=== PATIENT | female | born 1980 | race African-American/Black ===

== ENCOUNTER 2017-03-18 05:54 | Emergency (ER) | payer BC ==
[2017-03-18 06:06] VITALS: BP 138/80; PULSE 116; TEMP 97.5; BMI 31.2
[2017-03-18] MEDS ORDERED: SODIUM CHLORIDE 1,000 ML IV STA (07:47)
[2017-03-18] MEDS ORDERED: FAMOTIDINE 20 MG/50 ML IVPB 20 MG/50 ML MG IVPB ONE (07:47)
--- NOTE | 2017-03-18 07:49 | PDOC ---
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 Today to approximate 4 AM she woke up vomiting complaining of generalized abdominal discomfort. 2 episodes of diarrhea , multiple episodes of vomiting, bilious. Denies any fever. No hematemesis. Denies any back pain, chest pain or shortness of breath. Denies any urinary symptoms.] Allergies: No known allergies Medications: [None] Family History: Non-contributory Social History: Denies smoking, alcohol use, or IVDU Vital signs on arrival are [notable for pulse of 116.] Review of Systems GENERAL/CONSTITUTIONAL: [No fever or chills. No weakness. No weight change.] HEAD, EYES, EARS, NOSE AND THROAT: [No change in vision. No ear pain or discharge. No sore throat. ] CARDIOVASCULAR: [No chest pain or shortness of breath.] RESPIRATORY: [No cough, wheezing, or hemoptysis.] GASTROINTESTINAL: [Vomiting and diarrhea, no constipation, no rectal bleeding. Generalized abdominal discomfort with no defined tenderness] GENITOURINARY: [No dysuria, frequency, or change in urination.] MUSCULOSKELETAL: [No joint or muscle swelling or pain. No neck or back pain.] SKIN: [No rash or easy bruising.] NEUROLOGIC: [No headache, vertigo, loss of consciousness, or loss of sensation.] PSYCHIATRIC: [Anxious, no depression.] ENDOCRINE: [No increased thirst. No abnormal weight change.] HEMATOLOGIC/LYMPHATIC: [No anemia, easy bleeding, or history of blood clots.] ALLERGIC/IMMUNOLOGIC: [No hives or skin allergy. No latex allergy.] Physical Exam: GENERAL: [The patient is awake, alert, and fully oriented, in no acute distress. ] EYES: [Pupils equal, round and reactive to light, extraocular movements intact, sclera anicteric, conjunctiva clear.] ENT: [Ears normal, nares patent, oropharynx clear without exudates. Moist mucous membranes. No uvula deviation] NECK: [Normal range of motion, supple without lymphadenopathy, JVD, or masses.] LUNGS: [Breath sounds equal, clear to auscultation bilaterally. No wheezes, and no crackles.] HEART: [Regular rate and rhythm, normal S1 and S2 without murmur, rub or gallop. ] ABDOMEN: [Soft, nontender, normoactive bowel sounds. No guarding, no rebound. No masses. No bruising or abrasions] RECTAL : [Guaiac negative, normal rectal tone.] MUSCULOSKELETAL: [Normal range of motion, no edema. No clubbing or cyanosis. No cords, erythema, or tenderness. No CVA Tenderness with fist palpation.] NEUROLOGICAL: [Cranial nerves II through XII grossly intact. Normal speech, normal gait.] SKIN: [Warm, Dry, normal turgor, no rashes or lesions noted.] Past History - Past Medical History Allergies/Adverse Reactions: Allergies Allergy/AdvReac Type Severity Reaction Status Date / Time No Known Allergies Allergy Verified 03/18/17 06:04 Home Medications: Ambulatory Orders Omeprazole [Prilosec] 20 mg PO DAILY 11/28/13 Famotidine [Pepcid -] 20 mg PO BID #14 tablet 03/18/17 Ondansetron HCl [Zofran] 4 mg PO TID #20 tablet 03/18/17 Anemia: No Asthma: No Cancer: No Cardiac Disorders: No CVA: No COPD: No Dementia: No Diabetes: No Dialysis: No GI Disorders: Yes (gerd) Disorders: No HTN: No Hypercholesterolemia: No Kidney Stones: No Liver Disease: No Seizures: No Thyroid Disease: No - Surgical History Abdominal Surgery: No Appendectomy: No Cardiac Surgery: No Cholecystectomy: No Lung Surgery: No Neurologic Surgery: No - Immunization History Td Vaccination: Yes TDAP Vaccination: No Immunization Up to Date: Yes - Suicide/Smoking/Psychosocial Hx Smoking Status: No Smoking History: Never smoked Have you smoked in the past 12 months: No Number of Cigarettes Smoked Daily: 1 Information on smoking cessation initiated: No Hx Alcohol Use: No Drug/Substance Use Hx: No Substance Use Type: Alcohol *Physical Exam - Vital Signs Last Vital Signs Temp Pulse Resp BP Pulse Ox 97.5 F L 116 H 14 138/80 100 03/18/17 06:04 03/18/17 06:04 03/18/17 06:04 03/18/17 06:04 03/18/17 06:04 ED Treatment Course - LABORATORY CBC & Chemistry Diagram: 03/18/17 08:10 03/18/17 08:10 Medical Decision Making - Medical Decision Making 03/18/17 08:13 A/P: Patient here for evaluation of generalized abdominal pain has been having flulike symptoms for 5 days today woke up with vomiting was exposed to stomach virus in 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 She reports multiple children at her facility for vomiting with diarrhea. Patient denies any urinary symptoms, no fever, 2 episodes of vomiting none upon arrival, 2 episodes of diarrhea. Plan: CBC, CMP, urinalysis, urine culture and urine , Pepcid and Zofran 03/18/17 08:14 03/18/17 10:38 Laboratory Results - last 24 hr 03/18/17 03/18/17 03/18/17 08:10 08:10 08:10 WBC 8.5 RBC 4.86 D Hgb 11.9 Hct 39.2 MCV 80.6 MCH 24.6 L MCHC 30.5 L RDW 20.0 H D Plt Count 383 MPV 8.4 D Neutrophils % 66.2 Lymphocytes % 25.3 D Monocytes % 6.1 Eosinophils % 1.9 Basophils % 0.5 Sodium 139 Potassium 3.9 Chloride 103 Carbon Dioxide 19 L D Anion Gap 17 H BUN 10 D Creatinine 0.9 D Creat Clearance w eGFR > 60 Random Glucose 107 H Calcium 9.3 Total Bilirubin 0.3 D AST 20 D ALT 24 D Alkaline Phosphatase 87 Total Protein 8.6 H Albumin 4.3 Lipase 190 Urine Color Bridgette Urine Appearance Cloudy Urine pH 5.0 D Ur Specific [place] 1.025 Urine Protein 1+ H Urine Glucose (UA) Negative Urine Ketones Trace H Urine Blood 1+ H Urine Nitrite Negative Urine Bilirubin Negative Urine Urobilinogen Negative Ur Leukocyte Esterase Trace Urine WBC (Auto) 1 Urine RBC (Auto) 3 Ur Epithelial Cells Many Urine Mucus Rare Urine HCG, Qual 03/18/17 08:10 WBC RBC Hgb Hct MCV MCH MCHC RDW Plt Count MPV Neutrophils % Lymphocytes % Monocytes % Eosinophils % Basophils % Sodium Potassium Chloride Carbon Dioxide Anion Gap BUN Creatinine Creat Clearance w eGFR Random Glucose Calcium Total Bilirubin AST ALT Alkaline Phosphatase Total Protein Albumin Lipase Urine Color Urine Appearance Urine pH Ur Specific [place] Urine Protein Urine Glucose (UA) Urine Ketones Urine Blood Urine Nitrite Urine Bilirubin Urine Urobilinogen Ur Leukocyte Esterase Urine WBC (Auto) Urine RBC (Auto) Ur Epithelial Cells Urine Mucus Urine HCG, Qual Negative CBC reveals no anemia, leukocytosis, bandemia, lymphocytosis, or neutrophilia. Platelets are within normal values at this time. CMP reveals no electrolyte imbalance, there is no transaminitis, renal function is normal, there is no hyperbilirubinemia. Urinalysis reveals no urinary tract infection. There is +1 blood with 3 RBCs, inconsistent with kidney stone. Abdomen reassessed, no tenderness noted, good bowel sounds mildly hyperactive. Patient did tolerate fluids well. Reports no pain, no back pain, no CVA tenderness. Patient clinical signs of viral gastroenteritis. Will discharge patient home on Zofran, follow-up with PMD. Increase fluid intake. Angela diet. I discussed the physical exam findings, ancillary test results and final diagnoses with the patient. I answered all of the patient's questions. The patient was satisfied with the care received and felt comfortable with the discharge plan and treatment plan. The patient will call to arrange follow-up and will return to the Emergency Department with any new, persistent or worsening symptoms. *DC/Admit/Observation/Transfer Diagnosis at time of Disposition: Viral gastroenteritis - Discharge Dispostion Disposition: HOME Condition at time of disposition: Stable Admit: No - Prescriptions Prescriptions: Famotidine [Pepcid -] 20 mg PO BID #14 tablet Ondansetron HCl [Zofran] 4 mg PO TID #20 tablet - Referrals Referrals: Rosa Rojas MD [Primary Care Provider] - - Patient Instructions Printed Discharge Instructions: DI for Viral Gastroenteritis -- Adult Additional Instructions: Increase fluids to prevent dehydration Zofran as needed every 8 hours for nausea, Pepcid twice a day for the next 7 days Please followup with primary care in 3 days if symptoms persist Return to emergency department any increased cough, fever, inability to drink or other concerns - Post Discharge Activity Forms/Work/School Notes: Back to Work
[2017-03-18] MEDS ORDERED: ONDANSETRON 4 MG/2 ML VIAL IVPUSH ONE (07:50)
[2017-03-18 08:47] LABS: URINE APPEARANCE CLOUDY; URINE BILIRUBIN NEGATIVE (NEGATIVE); URINE BLOOD 1+ (NEGATIVE); URINE COLOR AMBER; URINE GLUCOSE (UA) NEGATIVE (NEGATIVE); URINE KETONE TRACE (NEGATIVE); URINE LEUK ESTERASE TRACE (NEGATIVE); URINE NITRITE NEGATIVE (NEGATIVE); URINE UROBILINOGEN NEGATIVE mg/dL (0.2-1.0)
[2017-03-18 08:59] LABS: BASO % 0.5 % (0-2.0); EOS % 1.9 % (0-4.5); HEMATOCRIT 39.2 % (32.4-45.2); HEMOGLOBIN 11.9 GM/dL (10.7-15.3); LYMPH % 25.3 % (8-40); MCH 24.6 pg (25.7-33.7); MCHC 30.5 g/dl (32.0-36.0); MEAN CELL VOLUME 80.6 fl (80-96); MEAN PLT VOLUME 8.4 fl (7.5-11.1); MONO % 6.1 % (3.8-10.2); NEUT % 66.2 % (42.8-82.8); PLATELET COUNT 383 K/MM3 (134-434); RBC 4.86 M/mm3 (3.60-5.2); WHITE BLOOD COUNT 8.5 K/mm3 (4.0-10.0)
[2017-03-18] MEDS ORDERED: ONDANSETRON 4 MG/2 ML VIAL ONE (09:03)
[2017-03-18 09:19] LABS: ALBUMIN 4.3 g/dl (3.4-5.0); ALK PHOS 87 U/L (45-117); ANION GAP 17 (8-16); BILIRUBIN,TOTAL 0.3 mg/dL (0.2-1.0); BLOOD UREA NITROGEN 10 mg/dL (7-18); CALCIUM 9.3 mg/dL (8.5-10.1); CHLORIDE 103 mmol/L (98-107); CO2 19 mmol/L (21-32); CREATININE 0.9 mg/dL (0.55-1.02); GLUCOSE,RANDOM 107 mg/dL (74-106); LIPASE 190 U/L (73-393); POTASSIUM 3.9 mmol/L (3.5-5.1); SGOT/AST 20 U/L (15-37); SGPT/ALT 24 U/L (12-78); SODIUM 139 mmol/L (136-145); TOT PROT 8.6 g/dl (6.4-8.2)
[2017-03-18 09:28] LABS: URINE PROTEIN 1+ (NEGATIVE)
--- NOTE | 2017-03-18 09:30 | PDOC ---
*Physical Exam - Vital Signs Last Vital Signs Temp Pulse Resp BP Pulse Ox 97.5 F L 116 H 14 138/80 100 03/18/17 06:04 03/18/17 06:04 03/18/17 06:04 03/18/17 06:04 03/18/17 06:04 - Physical Exam Comments: 03/18/17 09:30 The patient was examined by [SUBSTANCE ABUSE PREVENTION COORDINATOR Andolino] under my direct supervision. I personally evaluated the patient. I concur with the above findings and the plan of care. ED Treatment Course - LABORATORY CBC & Chemistry Diagram: 03/18/17 08:10 03/18/17 08:10 - ADDITIONAL ORDERS Additional order review: Laboratory Results 03/18/17 03/18/17 08:10 08:10 Sodium 139 Potassium 3.9 Chloride 103 Carbon Dioxide 19 L D Anion Gap 17 H BUN 10 D Creatinine 0.9 D Creat Clearance w eGFR > 60 Random Glucose 107 H Calcium 9.3 Total Bilirubin 0.3 D AST 20 D ALT 24 D Alkaline Phosphatase 87 Total Protein 8.6 H Albumin 4.3 Lipase 190 Urine Color Bridgette Urine Appearance Cloudy Urine pH 5.0 D Ur Specific [place] 1.025 Urine Protein 1+ H Urine Glucose (UA) Negative Urine Ketones Trace H Urine Blood 1+ H Urine Nitrite Negative Urine Bilirubin Negative Urine Urobilinogen Negative Ur Leukocyte Esterase Trace 03/18/17 08:10 RBC 4.86 D MCV 80.6 MCHC 30.5 L RDW 20.0 H D MPV 8.4 D Neutrophils % 66.2 Lymphocytes % 25.3 D Monocytes % 6.1 Eosinophils % 1.9 Basophils % 0.5 - Medications Given in the ED: ED Medications Discontinued Medications Generic Name Dose Route Start Last Admin Trade Name Freq PRN Reason Stop Dose Admin Sodium Chloride 1,000 mls @ 1,000 mls/hr 03/18/17 07:47 03/18/17 09:17 Normal Saline - IV 03/18/17 08:46 1,000 mls/hr ASDIR STA Administration Ondansetron HCl 4 mg 03/18/17 07:50 03/18/17 09:17 Zofran Injection IVPUSH 03/18/17 07:51 4 mg ONCE ONE Administration *DC/Admit/Observation/Transfer Diagnosis at time of Disposition: Viral gastroenteritis - Discharge Dispostion Disposition: HOME Condition at time of disposition: Stable - Prescriptions Prescriptions: Famotidine [Pepcid -] 20 mg PO BID #14 tablet Ondansetron HCl [Zofran] 4 mg PO TID #20 tablet - Referrals Referrals: Rosa Rojas MD [Primary Care Provider] - - Patient Instructions Printed Discharge Instructions: DI for Viral Gastroenteritis -- Adult Additional Instructions: Increase fluids to prevent dehydration Zofran as needed every 8 hours for nausea, Pepcid twice a day for the next 7 days Please followup with primary care in 3 days if symptoms persist Return to emergency department any increased cough, fever, inability to drink or other concerns - Post Discharge Activity Forms/Work/School Notes: Back to Work
[2017-03-18 09:50] LABS: EPI CELLS MANY /HPF (FEW); URINE MUCUS RARE
== END 2017-03-18 11:12 | disposition home or self-care (01) ==
LOC: JER 05:54
PROC: 3E033GC Introduction of Other Therapeutic Substance into Peripheral Vein, Percutaneous Approach (ICD-10-PCS; principal; 2017-03-18)
PROC: 3E0337Z Introduction of Electrolytic and Water Balance Substance into Peripheral Vein, Percutaneous Approach (ICD-10-PCS; 2017-03-18)
DX: A08.4 Viral intestinal infection, unspecified (principal)
CPT/HCPCS: 36415; 80053; 81003; 81015; 83690; 84703; 85025; 99281-25

== ENCOUNTER 2019-03-04 11:14 | Emergency (ER) | payer BC ==
[2019-03-04 11:21] VITALS: BMI 29.2
--- NOTE | 2019-03-04 11:47 | PDOC ---
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 Patient continues to vomit. Last night before she came in here. Patient does not have diarrhea but feels like that is "coming next". Patient tried to take DayQuil this morning and threw up. GENERAL/CONSTITUTIONAL: +fever, weakness. No: Dizziness HEAD, EYES, EARS, NOSE AND THROAT: No change in vision. No ear pain or discharge. No sore throat. CARDIOVASCULAR: No chest pain RESPIRATORY: No shortness of breath or cough GASTROINTESTINAL: No pain, nausea, +vomiting, no: Diarrhea or constipation GENITOURINARY: No dysuria MUSCULOSKELETAL: No neck or back pain SKIN: No rash NEUROLOGIC: No headache, vertigo, loss of consciousness, or loss of sensation. GENERAL: The patient is awake, alert, and fully oriented, in no acute distress. HEAD: Normal with no signs of trauma. EYES: Pupils equal, round and reactive to light, sclera anicteric, conjunctiva clear. ENT: pharynx: no erythema, no exudate, uvula midline NECK: supple CHEST: clear, nontender, rr ABD: soft, nontender BACK: no tenderness or signs of injury EXTREMITIES: Normal range of motion, no edema. NEUROLOGICAL: Normal speech, normal gait. SKIN: Warm, Dry Past History - Past Medical History Allergies/Adverse Reactions: Allergies Allergy/AdvReac Type Severity Reaction Status Date / Time No Known Allergies Allergy Verified 03/04/19 11:17 Home Medications: Ambulatory Orders Omeprazole [Prilosec] 20 mg PO DAILY 11/28/13 Anemia: No Asthma: No Cancer: No Cardiac Disorders: No CVA: No COPD: No Dementia: No Diabetes: No Dialysis: No GI Disorders: Yes (gerd) Disorders: No HTN: No Hypercholesterolemia: No Kidney Stones: No Liver Disease: No Seizures: No Thyroid Disease: No - Surgical History Abdominal Surgery: No Appendectomy: No Cardiac Surgery: No Cholecystectomy: No Lung Surgery: No Neurologic Surgery: No - Immunization History Td Vaccination: Yes TDAP Vaccination: No Immunization Up to Date: Yes - Psycho Social/Smoking Cessation Hx Smoking Status: No Smoking History: Never smoked Have you smoked in the past 12 months: No Number of Cigarettes Smoked Daily: 1 Hx Alcohol Use: No Drug/Substance Use Hx: No Substance Use Type: Alcohol *Physical Exam - Vital Signs Last Vital Signs Temp Pulse Resp BP Pulse Ox 100.3 F H 100 H 26 H 145/73 100 03/04/19 11:18 03/04/19 11:18 03/04/19 11:18 03/04/19 11:18 03/04/19 11:18 Heart Score/ECG Review - ECG Intrepretation Rhythm: Regular Rhythm (1426 normal sinus rhythm at 96, QTc 449, no ST or T wave changes) ED Treatment Course - LABORATORY CBC & Chemistry Diagram: 03/04/19 13:46 03/04/19 13:46 Medical Decision Making - Medical Decision Making 03/04/19 12:00 Healthy 38-year-old female with GI, flu symptoms since yesterday afternoon. Works in a custodial. Patient is not dehydrated, will give Zofran, flu swab, abdominal exam is benign. Will reassess. Patient will get Tylenol and about 20 -30 minutes after getting Zofran as she is running a fever. 1400 patient is flu negative. Patient continues to complain of various complaints including chest pain and throat pain. Patient will get some basic labs, hydration, Motrin, strep, EKG and full assessment. 03/04/19 15:29 Patient feels much better, patient is hungry, lab work, EKG, chest x-ray, flu, strep, cardiac enzyme is negative. Symptoms are consistent with viral illness but because patient felt so sick and has so many complaints work-up was done. Patient feels comfortable and feels better and she is stable for discharge home. This was all explained to patient. Discussed issues, findings, results, applicable medications and treatments and follow-up. All these were understood and all questions were answered Discharge - Discharge Information Problems reviewed: Yes Clinical Impression/Diagnosis: Viral illness Fever Qualifiers: Fever type: unspecified Qualified Code(s): R50.9 - Fever, unspecified Condition: Stable Disposition: HOME - Admission No - Follow up/Referral - Patient Discharge Instructions Patient Printed Discharge Instructions: DI for Vomiting -- Adult Additional Instructions: Drink 2-3 L of water daily Take Tylenol 650 mg every 4 hours or Motrin 600 mg every 6 hours for fever and pain It is very important to keep up on the Tylenol and Motrin for the next 1 to 2 days until the fever starts going away over longer periods of time Clear fluids. If no vomiting can eat bland foods, no spicy or greasy foods Return to the nearest ER if fever, vomiting or worsening pain, unable to keep down fluids, or getting sicker Followup with your doctor in one to 2 days - Post Discharge Activity Work/Back to School Note: Back to Work
[2019-03-04] MEDS ORDERED: ONDANSETRON *ODT* 4 MG TABLET SL ONE (11:52)
[2019-03-04] MEDS ORDERED: ACETAMINOPHEN 325 MG TABLET (FP) PO ONE (11:53)
[2019-03-04] MEDS ORDERED: ACETAMINOPHEN 325 MG TABLET (FP) ONE (12:20)
[2019-03-04] MEDS ORDERED: ONDANSETRON *ODT* 4 MG TABLET ONE (12:20)
[2019-03-04] MEDS ORDERED: IBUPROFEN 600 MG TABLET (FP) PO ONE ×2 (13:24→13:48)
[2019-03-04] MEDS ORDERED: SODIUM CHLORIDE 1,000 ML IV STA (13:24)
[2019-03-04 14:11] LABS: BASO % 0.3 % (0-2.0); EOS % 1.2 % (0-4.5); HEMATOCRIT 31.4 % (32.4-45.2); HEMOGLOBIN 10.2 GM/dL (10.7-15.3); LYMPH % 5.6 % (8-40); MCH 27.1 pg (25.7-33.7); MCHC 32.4 g/dl (32.0-36.0); MEAN CELL VOLUME 83.6 fl (80-96); MEAN PLT VOLUME 7.9 fl (7.5-11.1); NEUT % 82.9 % (42.8-82.8); PLATELET COUNT 346 K/MM3 (134-434); RBC 3.76 M/mm3 (3.60-5.2); RDW 17.4 % (11.6-15.6); WHITE BLOOD COUNT 8.3 K/mm3 (4.0-10.0)
[2019-03-04 15:08] LABS: ALBUMIN 3.5 g/dl (3.4-5.0); ALK PHOS 77 U/L (45-117); ANION GAP 8 MMOL/L (8-16); BILIRUBIN,TOTAL 1.4 mg/dL (0.2-1); BLOOD UREA NITROGEN 8.9 mg/dL (7-18); CALCIUM 8.8 mg/dL (8.5-10.1); CHLORIDE 108 mmol/L (98-107); CO2 21 mmol/L (21-32); CREATININE 0.7 mg/dL (0.55-1.3); GLUCOSE,RANDOM 83 mg/dL (74-106); POTASSIUM 4.5 mmol/L (3.5-5.1); SGOT/AST 37 U/L (15-37); SGPT/ALT 21 U/L (13-61); SODIUM 137 mmol/L (136-145); TOT PROT 7.3 g/dl (6.4-8.2)
[2019-03-04 15:18] LABS: EPI CELLS 1.2 /HPF (0-5/HPF); HYALINE CASTS 0 /lpf (0-8); PH,URINE 5.5 (5.0-8.0); URINE APPEARANCE CLEAR; URINE BACTERIA 55.6 /hpf (NEGATIVE); URINE BILIRUBIN NEGATIVE (NEGATIVE); URINE COLOR YELLOW; URINE GLUCOSE (UA) NEGATIVE (NEGATIVE); URINE KETONE TRACE (NEGATIVE); URINE LEUK ESTERASE NEGATIVE (NEGATIVE); URINE NITRITE NEGATIVE (NEGATIVE); URINE PROTEIN NEGATIVE (NEGATIVE); URINE RBC 1 /hpf (0-4); URINE UROBILINOGEN 0.2 mg/dL (0.2-1.0); URINE WBC 5 /hpf (0-5)
[2019-03-04 16:00] VITALS: BP 132/70; PULSE 86; TEMP 98.7
--- NOTE | 2019-03-05 13:37 | EKG ---
Test Reason : Blood Pressure : / mmHG Vent. Rate : 096 BPM Atrial Rate : 096 BPM P-R Int : 138 ms QRS Dur : 078 ms QT Int : 356 ms P-R-T Axes : 050 042 043 degrees QTc Int : 449 ms NORMAL SINUS RHYTHM NORMAL ECG WHEN COMPARED WITH ECG OF 28-NOV-2013 08:26, NO SIGNIFICANT CHANGE WAS FOUND Confirmed by MD ABA, MATIAS ([id number]) on 03/05/2019 1:37:19 PM Referred By: Confirmed By:MATIAS TRONCOSO MD
== END 2019-03-04 15:45 | disposition home or self-care (01) ==
LOC: JERFT 11:14
PROC: 3E0337Z Introduction of Electrolytic and Water Balance Substance into Peripheral Vein, Percutaneous Approach (ICD-10-PCS; principal; 2019-03-04)
DX: J06.9 Acute upper respiratory infection, unspecified (principal); B34.9 Viral infection, unspecified
CPT/HCPCS: 36415; 71046-TC-FY; 80053; 81003; 84484; 85025; 87070; 87086; 87804; 87880; 93005; 93010; 99283-25; J7030; Q0162

== ENCOUNTER 2019-03-05 07:19 | Emergency (ER) | payer BC ==
[2019-03-05 07:40] VITALS: BMI 29.2
[2019-03-05] MEDS ORDERED: SODIUM CHLORIDE 0.9% 500 ML INFUS.BAG IV ONE ×2 (07:48→11:39)
[2019-03-05] MEDS ORDERED: ACETAMINOPHEN 1000 MG/100 ML VIAL (NON FORMULARY) IVPB ONE (07:48)
[2019-03-05] MEDS ORDERED: KETOROLAC TROMETHAMINE 30 MG/1 ML VIAL IVPUSH ONE ×2 (07:50→11:43)
[2019-03-05] MEDS ORDERED: ACETAMINOPHEN INJECTION 100 ML IVPB ONE (07:54)
[2019-03-05] MEDS ORDERED: KETOROLAC TROMETHAMINE 15 MG/ML VIAL ONE ×2 (07:54→11:57)
--- NOTE | 2019-03-05 08:01 | PDOC ---
History of Present Illness - History of Present Illness Initial Comments: 03/05/19 08:19 CHIEF COMPLAINT: Return visit HISTORY OF PRESENT ILLNESS: 38-year-old female with no past medical history returns to ED after visit yesterday with diagnosis of upper respiratory infection. Patient persistently complains of feeling weak and having throat and chest pain when coughing. Patient states she was advised to take Motrin and Tylenol but she took Motrin last night at 6 PM and "still has a fever this morning." Patient reports that her nausea has subsided since her visit yesterday, but she still feels weak. Patient is currently menstruating. No recent travel or sick contacts. PAST MEDICAL HISTORY: Denies past medical history FAMILY HISTORY: Denies SOCIAL HISTORY: Denies tobacco, alcohol, illicit drug use. SURGICAL HISTORY: Denies ALLERGIES: No known drug allergies REVIEW OF SYSTEMS General/Constitutional: Persistent fever. Denies weakness, weight change. HEENT: Denies change in vision. Denies ear pain or discharge. Denies sore throat. Cardiovascular: Denies chest pain or shortness of breath. Respiratory: Persistent cough with associated chest discomfort. Denies wheezing , or hemoptysis. Gastrointestinal: Denies nausea, vomiting, diarrhea or constipation. Denies rectal bleeding. Genitourinary: Denies dysuria, frequency, or change in urination. Musculoskeletal: Denies joint or muscle swelling or pain. Denies neck or back pain. Skin and breasts: Denies rash or easy bruising. Neurologic: Denies headache, vertigo, loss of consciousness, or loss of sensation. Psychiatric: Denies depression or anxiety. PHYSICAL EXAM General Appearance: Pale, lethargic. Appropriately dressed. HEENT: EOMI, PERRLA, normal ENT inspection, normal voice, TMs normal, pharynx normal. No conjunctival pallor. No photophobia, scleral icterus. Neck: Supple. Trachea midline. No tenderness, rigidity, carotid bruit, stridor , lymphadenopathy, or thyromegaly. Respiratory/Chest: Tachynpeic. Lungs CTAB. No shortness of breath, chest tenderness, respiratory distress, accessory muscle use. No crackles, rales, rhonchi, stridor, wheezing, dullness Cardiovascular: Tachycardic. RRR. S1, S2. No JVD, murmur, bradycardia. Vascular Pulses: Dorsalis-Pedis (R): 2+, Dorsalis-Pedis (L): 2+ Gastrointestinal/Abdominal: Normal bowel sounds. Abdomen soft, non-distended. No tenderness or rebound tenderness. No organomegaly, pulsatile mass, guarding , hernia, hepatomegaly, splenomegaly. Lymphatic: No adenopathy, tenderness. Musculoskeletal/Extremities: Normal inspection. FROM of all extremities, normal capillary refill. Pelvis Stable. No CVA tenderness. No tenderness to extremities, pedal edema, swelling, erythema or deformity. Integumentary: Appropriate color, dry, warm. No cyanosis, erythema, jaundice or rash Neurologic: ship's cook II-XII intact. Fully oriented, alert. Appropriate mood/affect. Motor strength 5/5. No appreciable EOM palsy, facial droop or sensory deficit. 03/05/19 11:40 <Isamar Beasley - Last Filed: 03/05/19 15:43> <Nellie Craven - Last Filed: 03/05/19 16:15> - General Chief Complaint: Respiratory Stated Complaint: GENERALIZED ACHES & PAIN Past History - Past Medical History Anemia: No Asthma: No Cancer: No Cardiac Disorders: No CVA: No COPD: No Dementia: No Diabetes: No Dialysis: No GI Disorders: Yes (gerd) Disorders: No HTN: No Hypercholesterolemia: No Kidney Stones: No Liver Disease: No Seizures: No Thyroid Disease: No - Surgical History Abdominal Surgery: No Appendectomy: No Cardiac Surgery: No Cholecystectomy: No Lung Surgery: No Neurologic Surgery: No - Immunization History Td Vaccination: Yes TDAP Vaccination: No Immunization Up to Date: Yes - Psycho Social/Smoking Cessation Hx Smoking Status: No Smoking History: Never smoked Have you smoked in the past 12 months: No Number of Cigarettes Smoked Daily: 1 Hx Alcohol Use: No Drug/Substance Use Hx: No Substance Use Type: Alcohol <Isamar Beasley - Last Filed: 03/05/19 15:43> <Nellie Craven - Last Filed: 03/05/19 16:15> - Past Medical History Allergies/Adverse Reactions: Allergies Allergy/AdvReac Type Severity Reaction Status Date / Time No Known Allergies Allergy Verified 03/05/19 08:27 Home Medications: Ambulatory Orders Omeprazole [Prilosec] 20 mg PO DAILY 11/28/13 Acetaminophen [Tylenol] 650 mg PO QID PRN 03/05/19 *Physical Exam - Vital Signs Last Vital Signs Temp Pulse Resp BP Pulse Ox 102.6 F H 114 H 26 H 124/70 99 03/05/19 07:38 03/05/19 07:38 03/05/19 07:38 03/05/19 07:38 03/05/19 07:38 <Isamar Beasley - Last Filed: 03/05/19 15:43> - Vital Signs Last Vital Signs Temp Pulse Resp BP Pulse Ox 99.9 F H 102 H 18 117/67 99 03/05/19 09:29 03/05/19 09:29 03/05/19 09:29 03/05/19 09:29 03/05/19 09:29 <Nellie Craven - Last Filed: 03/05/19 16:15> ED Treatment Course - LABORATORY CBC & Chemistry Diagram: 03/05/19 08:00 03/05/19 15:00 - RADIOLOGY Radiology Studies Ordered: Category Date Time Status CHEST PA & LAT [RAD] Stat Radiology 03/05/19 07:49 Ordered <Isamar Beasley - Last Filed: 03/05/19 15:43> - LABORATORY CBC & Chemistry Diagram: 03/05/19 08:00 03/05/19 15:00 - ADDITIONAL ORDERS Additional order review: Laboratory Results 03/05/19 03/05/19 08:00 08:00 Sodium 139 Potassium 3.4 L Chloride 107 Carbon Dioxide 23 Anion Gap 9 BUN 6.3 L Creatinine 0.8 Est GFR (CKD-EPI)AfAm 107.64 Est GFR (CKD-EPI)NonAf 92.87 Random Glucose 95 Lactic Acid 1.0 Calcium 8.6 Total Bilirubin 0.2 AST 22 ALT 21 Alkaline Phosphatase 73 Total Protein 7.2 Albumin 3.5 03/05/19 08:00 RBC 3.69 MCV 83.1 MCHC 32.0 RDW 17.4 H MPV 7.6 Neutrophils % 74.8 Lymphocytes % 8.4 D Monocytes % 16.1 H Eosinophils % 0.3 Basophils % 0.4 - Medications Given in the ED: ED Medications Discontinued Medications Generic Name Dose Route Start Last Admin Trade Name Freq PRN Reason Stop Dose Admin Acetaminophen 1,000 mg 03/05/19 07:48 03/05/19 08:05 Ofirmev Injection - IVPB 03/05/19 07:49 1,000 mg ONCE ONE Administration Ketorolac Tromethamine 15 mg 03/05/19 07:50 03/05/19 08:17 Toradol Injection - IVPUSH 03/05/19 07:51 15 mg ONCE ONE Administration Sodium Chloride 1,000 ml 03/05/19 07:48 03/05/19 08:05 Normal Saline - IV 03/05/19 07:49 1,000 ml ONCE ONE Administration <Nellie Craven Merissalucastrung - Last Filed: 03/05/19 16:15> Medical Decision Making - Medical Decision Making 03/05/19 08:22 38-year-old female with no past medical history returns to ED after visit yesterday with diagnosis of upper respiratory infection. -X-ray -Labs, fluids -Zofran, Tylenol 03/05/19 09:15 K+ 3.4, down from 4.5 yesterday. Will repeat chem for confirmation Patient continues to be ill appearing and pale, tachycardic and tachypneic. -EKG -lactic acid, blood cx -d-dimer 03/05/19 11:27 Patient repeat CMP with K+ 3.0. -20meq K rider -VBG -CK D-dimer 609. CTA ordered eval for pneumonia vs PE. 03/05/19 15:43 Repeat K+ 3.8. Patient reassessed multiple times throughout ED course and has had continuous improvement of all symptoms. Patient reports feeling much better and states she is ready to go home. Advised patient to take medication as prescribed and follow up with PCP within the next week. Advised patient of signs and symptoms for return to ED. Patient verbalized understanding and agrees to plan. <Isamar Beasley - Last Filed: 03/05/19 15:43> - Medical Decision Making My resident physical exam the patient was seen and evaluated in conjunction with midlevel provider under my direct supervision, ancillary studies were reviewed. I agree with the plan as outlined with nurse practitioner Gale. HPI, workup/dispo as outlined. VS reviewed, +fever and tachycardia seen yesterday, neg flu and workup baseline anemia no wbc ct blood cultures and lactic done repeat cxr clear, no e/o pna due to respiratory sx, fever - will need CT imaging. dimer elevated, CTA neg for PE, no infection/infiltrate, unremarkable given k ridur and PO tolerating PO intake while in ED, pt feels much improved, rest and hydration, supportive care. likely viral syndrome and anticipatory guidance. 03/05/19 10:09 03/05/19 16:14 <Nellie Craven - Last Filed: 03/05/19 16:15> Discharge - Discharge Information Problems reviewed: Yes - Admission No <BeasleyIsamar - Last Filed: 03/05/19 15:43> <Nellie Craven - Last Filed: 03/05/19 16:15> - Discharge Information Clinical Impression/Diagnosis: Viral upper respiratory illness, Influenza-like illness Condition: Stable Disposition: HOME - Follow up/Referral Referrals: Karlos Shelley MD [Primary Care Provider] - - Patient Discharge Instructions Patient Printed Discharge Instructions: DI for Viral Syndrome Additional Instructions: Please get plenty of rest and stay well-hydrated. Please follow-up with your primary care doctor within the next week for continued monitoring and evaluation of your symptoms. If you develop persistent fever, vomiting, diarrhea, or any new or worsening symptoms, please return to the ER. - Post Discharge Activity Work/Back to School Note: Back to Work
[2019-03-05 08:36] LABS: BASO % 0.4 % (0-2.0); EOS % 0.3 % (0-4.5); HEMATOCRIT 30.7 % (32.4-45.2); HEMOGLOBIN 9.8 GM/dL (10.7-15.3); LYMPH % 8.4 % (8-40); MCH 26.6 pg (25.7-33.7); MEAN CELL VOLUME 83.1 fl (80-96); MEAN PLT VOLUME 7.6 fl (7.5-11.1); MONO % 16.1 % (3.8-10.2); NEUT % 74.8 % (42.8-82.8); PLATELET COUNT 297 K/MM3 (134-434); RBC 3.69 M/mm3 (3.60-5.2); RDW 17.4 % (11.6-15.6); WHITE BLOOD COUNT 6.7 K/mm3 (4.0-10.0)
[2019-03-05 08:40] LABS: ALBUMIN 3.5 g/dl (3.4-5.0); BILIRUBIN,TOTAL 0.2 mg/dL (0.2-1); BLOOD UREA NITROGEN 6.3 mg/dL (7-18); CALCIUM 8.6 mg/dL (8.5-10.1); CREATININE 0.8 mg/dL (0.55-1.3); POTASSIUM 3.4 mmol/L (3.5-5.1); TOT PROT 7.2 g/dl (6.4-8.2)
[2019-03-05 10:21] LABS: ALBUMIN 3.3 g/dl (3.4-5.0); BILIRUBIN,TOTAL 0.2 mg/dL (0.2-1); BLOOD UREA NITROGEN 6.6 mg/dL (7-18); CALCIUM 8.3 mg/dL (8.5-10.1); CREATININE 0.7 mg/dL (0.55-1.3); TOT PROT 6.6 g/dl (6.4-8.2)
[2019-03-05] MEDS ORDERED: POTASSIUM CHLORIDE 20 MEQ PREMIX IVPB 100 ML IVPB ONE (10:38)
[2019-03-05] MEDS ORDERED: KCL 10 MEQ IVPB 10 MEQ/100 ML INFUS.BAG IVPB ONE (11:11)
[2019-03-05 11:18] LABS: VENOUS PH 7.39 (7.31-7.41)
[2019-03-05 11:25] LABS: VENOUS PO2 < 49 mmHg (28-48)
[2019-03-05 11:37] LABS: EPI CELLS 3.9 /HPF (0-5/HPF); HYALINE CASTS 2 /lpf (0-8); URINE APPEARANCE CLOUDY; URINE BACTERIA 32.7 /hpf (NEGATIVE); URINE BILIRUBIN NEGATIVE (NEGATIVE); URINE COLOR RED; URINE GLUCOSE (UA) NEGATIVE (NEGATIVE); URINE KETONE 2+ (NEGATIVE); URINE LEUK ESTERASE NEGATIVE (NEGATIVE); URINE NITRITE NEGATIVE (NEGATIVE); URINE PROTEIN 1+ (NEGATIVE); URINE RBC 1179 /hpf (0-4); URINE UROBILINOGEN 0.2 mg/dL (0.2-1.0); URINE WBC 6 /hpf (0-5)
[2019-03-05] MEDS ORDERED: POTASSIUM CHLORIDE TABS 20 MEQ TABLET.ER (FP) PO ONE ×2 (11:39→11:56)
--- NOTE | 2019-03-05 13:29 | EKG ---
Test Reason : Blood Pressure : / mmHG Vent. Rate : 103 BPM Atrial Rate : 103 BPM P-R Int : 144 ms QRS Dur : 080 ms QT Int : 332 ms P-R-T Axes : 042 033 012 degrees QTc Int : 434 ms SINUS TACHYCARDIA OTHERWISE NORMAL ECG WHEN COMPARED WITH ECG OF 04-MAR-2019 14:26, NONSPECIFIC T WAVE ABNORMALITY NOW EVIDENT IN INFERIOR LEADS Confirmed by MD ABA, MATIAS ([id number]) on 03/05/2019 1:28:48 PM Referred By: Confirmed By:MATIAS TRONCOSO MD
[2019-03-05 16:20] VITALS: BP 136/79; PULSE 82; TEMP 98.5
== END 2019-03-05 16:24 | disposition home or self-care (01) ==
LOC: JER 07:19
PROC: 3E0333Z Introduction of Anti-inflammatory into Peripheral Vein, Percutaneous Approach (ICD-10-PCS; principal; 2019-03-05)
PROC: 3E0333Z Introduction of Anti-inflammatory into Peripheral Vein, Percutaneous Approach (ICD-10-PCS; 2019-03-05)
PROC: 3E033NZ Introduction of Analgesics, Hypnotics, Sedatives into Peripheral Vein, Percutaneous Approach (ICD-10-PCS; 2019-03-05)
PROC: 3E0337Z Introduction of Electrolytic and Water Balance Substance into Peripheral Vein, Percutaneous Approach (ICD-10-PCS; 2019-03-05)
DX: J11.1 Influenza due to unidentified influenza virus with other respiratory manifestations (principal); E87.6 Hypokalemia; K21.9 Gastro-esophageal reflux disease without esophagitis
CPT/HCPCS: 36415; 71046-TC-FY; 71275-TC; 80053; 81003; 82550; 82803; 83605; 83735; 84132; 84703; 85025; 85379; 87040; 87899; 93005; 93010; 99284-25; J0131; Q9967

== ENCOUNTER 2020-07-24 09:22 | Emergency (ER) | payer BC ==
[2020-07-24 09:39] VITALS: BP 135/84; PULSE 79; TEMP 97.8; BMI 30.8
[2020-07-24] MEDS ORDERED: LIDOCAINE 5% TOPICAL PATCH TP ONE (10:18)
[2020-07-24] MEDS ORDERED: KETOROLAC TROMETHAMINE 30 MG/1 ML VIAL IM ONE (10:18)
[2020-07-24] MEDS ORDERED: LIDOCAINE 5% TOPICAL PATCH ONE (10:34)
[2020-07-24] MEDS ORDERED: KETOROLAC TROMETHAMINE 30 MG/1 ML VIAL ONE (10:35)
[2020-07-24] MEDS ORDERED: LIDOCAINE PATCH REMOVAL MC ONE (22:00)
== END 2020-07-24 11:43 | disposition home or self-care (01) ==
LOC: JERFT 09:22
PROC: 3E0233Z Introduction of Anti-inflammatory into Muscle, Percutaneous Approach (ICD-10-PCS; principal; 2020-07-24)
DX: S39.012A Strain of muscle, fascia and tendon of lower back, initial encounter (principal); S46.912A Strain of unspecified muscle, fascia and tendon at shoulder and upper arm level, left arm, initial encounter
CPT/HCPCS: 73030-TC-LT-FY; 99284-25

== ENCOUNTER 2020-07-28 14:59 | Emergency (ER) | payer BC, OTHER ==
[2020-07-28 15:07] VITALS: BP 158/93; PULSE 87; TEMP 99; BMI 30.8
[2020-07-28] MEDS ORDERED: ACETAMINOPHEN 500 MG TABLET (FP) PO ONE (15:16)
[2020-07-28] MEDS ORDERED: LIDOCAINE 5% TOPICAL PATCH TP ONE (15:17)
[2020-07-28] MEDS ORDERED: ACETAMINOPHEN 325 MG TABLET (FP) ONE (15:36)
[2020-07-28] MEDS ORDERED: LIDOCAINE 5% TOPICAL PATCH ONE (15:37)
[2020-07-28] MEDS ORDERED: KETOROLAC TROMETHAMINE 30 MG/1 ML VIAL IM ONE (15:53)
[2020-07-28] MEDS ORDERED: KETOROLAC TROMETHAMINE 30 MG/1 ML VIAL ONE (15:56)
[2020-07-28] MEDS ORDERED: LIDOCAINE PATCH REMOVAL MC SCH (22:00)
== END 2020-07-28 16:25 | disposition home or self-care (01) ==
LOC: FER 14:59
PROC: 3E0233Z Introduction of Anti-inflammatory into Muscle, Percutaneous Approach (ICD-10-PCS; principal; 2020-07-28)
DX: M54.5 Low back pain (principal)
CPT/HCPCS: 99284-25

== ENCOUNTER 2022-07-02 08:41 | Emergency (ER) | payer OTHER, BC ==
[2022-07-02 09:01] VITALS: BP 154/97; PULSE 62; RESP 16; TEMP 98.4; BMI 30.8
== END 2022-07-02 09:31 | disposition home or self-care (01) ==
LOC: FER 08:41
DX: S69.92XA Unspecified injury of left wrist, hand and finger(s), initial encounter (principal); W13.4XXA Fall from, out of or through window, initial encounter; Y99.0 Civilian activity done for income or pay
CPT/HCPCS: 99282-25

== ENCOUNTER 2024-01-29 06:02 | Emergency (ER) | payer BC, OTHER ==
[2024-01-29 06:09] VITALS: BP 147/112; PULSE 81; RESP 16; TEMP 99.3; BMI 30.9
== END 2024-01-29 06:52 | disposition home or self-care (01) ==
LOC: FER 06:02
DX: S93.402A Sprain of unspecified ligament of left ankle, initial encounter (principal); X58.XXXA Exposure to other specified factors, initial encounter
CPT/HCPCS: 73610-TC-LT-FY; 99283-25